=== PATIENT | male | born 1975 | race Caucasian/White ===

== ENCOUNTER 2017-02-01 14:22 | Emergency (ER) | payer OTHER ==
[~2017-02-01] VITALS: Ht 172.7 cm; Wt 97.5 kg
[2017-02-01 14:40] VITALS: BP 144/90
--- NOTE | 2017-02-01 15:25 | PHYS DOC ---
Past Medical History Past Medical History: No Pertinent History Past Surgical History: Cholecystectomy Additional Past Surgical Histo: vasectomy, left knee orthoscopic, deviated septum Alcohol Use: Occasionally Drug Use: None Adult General Chief Complaint Chief Complaint: LACERATION/AVULSION HPI HPI Patient is a 41 year old male presents to the emergency department stating that he was hit in the right side of his ear with a container at work. He does have lacerations noted on the outer part of the ear and a small superficial laceration noted on the cartilage in the ear. Bleeding is currently controlled. Patient is unsure when his last tetanus immunization occurred. Patient denies any loss of consciousness. Review of Systems Review of Systems Constitutional: Denies fever or chills [] Eyes: Denies change in visual acuity, redness, or eye pain [] HENT: Denies nasal congestion or sore throat [] Respiratory: Denies cough or shortness of breath [] Cardiovascular: No additional information not addressed in HPI [] GI: Denies abdominal pain, nausea, vomiting, bloody stools or diarrhea [] : Denies dysuria or hematuria [] Musculoskeletal: Denies back pain or joint pain [] Integument: Denies rash or skin lesions laceration noted to the right ear Neurologic: Denies headache, focal weakness or sensory changes [] Endocrine: Denies polyuria or polydipsia [] Current Medications Current Medications Current Medications Medications (Trade) Dose Ordered Sig/[place] Start Time Stop Time Status Last Admin Dose Admin Diphtheria/ Tetanus/Acell Pertussis (Boostrix) 0.5 ml ONCE ONCE 02/01/17 15:30 02/01/17 15:31 DC 02/01/17 15:27 0.5 ML Lidocaine/Sodium Bicarbonate (Buffered Lidocaine 1%) 20 ml 1X ONCE 02/01/17 15:30 02/01/17 15:31 DC 02/01/17 15:25 20 ML Allergies Allergies Allergies Coded Allergies Type Severity Reaction Last Updated Verified No Known Drug Allergies 02/01/17 No Physical Exam Physical Exam Constitutional: Well developed, well nourished, no acute distress, non-toxic appearance. [] HENT: Normocephalic, atraumatic, bilateral external ears normal, oropharynx moist, no oral exudates, nose normal. [] Eyes: PERRLA, EOMI, conjunctiva normal, no discharge. [] Neck: Normal range of motion, no tenderness, supple, no stridor. [] Cardiovascular: Patient pink warm and dry Lungs & Thorax: No respiratory distress noted Skin: Warm, dry, no erythema, no rash. Patient with a laceration noted to the right ear. 0.5 cm laceration noted to the outer part of the ear with a very superficial laceration approximately 0.5 cm in length on the inside cartridge of the ear. Bleeding is currently controlled. Back: No tenderness Extremities: No tenderness, no cyanosis, no clubbing, ROM intact, no edema. [] Neurologic: Alert and oriented X 3, normal motor function, normal sensory function, no focal deficits noted. [] Psychologic: Affect normal, judgement normal, mood normal. [] Current Patient Data Vital Signs Vital Signs Date Time Temp Pulse Resp B/P (MAP) Pulse Ox O2 Delivery O2 Flow Rate FiO2 02/01/17 14:40 98.7 95 18 98 Room Air 98.7 EKG EKG [] Radiology/Procedures Radiology/Procedures [] Course & Med Decision Making Course & Med Decision Making Pertinent Labs and Imaging studies reviewed. (See chart for details) Patient was provided with discharge instructions treatment regimens and follow- up recommendations recommended Tylenol or ibuprofen for pain and discomfort. Ice packs on 20 minutes off 20 minutes several times a day. Patient was encouraged to keep the area clean and dry. He was encouraged to watch for signs and symptoms of infection such as redness, warmth, tenderness or any yellow/ greenish drainage of a come from the site physician occur follow-up to primary care physician immediately. Patient agrees with discharge instructions, treatment regimens and follow-up recommendations. Recommended sutures out in 7- 10 days. Patient will be discharged home in stable condition. All questions were answered for the patient at his bedside. [] Dragon Disclaimer Dragon Disclaimer This electronic medical record was generated, in whole or in part, using a voice recognition dictation system. Departure Departure Impression: Primary Impression: Laceration of right ear Disposition: HOME, SELF-CARE Condition: STABLE Referrals: JUWAN GUAN MD (PCP) Patient Instructions: Laceration Care, Adult, [id number] Additional Instructions: Activity as tolerated. Keep the area clean and dry. Clean the site twice daily with soap and water and apply antibiotic to the area. Watch for signs and symptoms of infection: Redness, warmth, tenderness or any yellow/greenish drainage of a come from the site physician occur follow-up to primary care physician immediately. Otherwise follow-up in 7-10 days for suture removal. Return back to emergency prior signs symptoms of become worse. Tylenol or ibuprofen for pain and discomfort. Ice packs on 20 minutes off 20 minutes several times a day may also help with pain and discomfort. Laceration/Wound Repair Laceration/Wound Repair : Wound Location: head Wound's Depth, Shape: superficial Wound Length (cm): 0 Wound Explored: clean Irrigated w/ Saline (ccs): 100 Betadine Prep?: Yes Anesthesia: 1% Lidocaine Volume Anesthetic (ccs): 3 Wound Repaired With: sutures Suture Size/Type: 4:0 Number of Sutures: 4 Progress Right ear was injected with lidocaine 1% buffered with 3 mL injected into the area. 100 mL of normal saline was used to irrigate the area site was explored with no foreign bodies noted. Patient site was cleaned with Betadine, 4 interrupted sutures of 4-0 nylon was placed into the right ear. Patient tolerated procedure well. LEYLA HOFFMANN APRN Feb 01, 2017 15:25
[2017-02-01] MEDS ORDERED: LIDOCAINE 1% / SOD BICARB 8.4% 20 ML VIAL. IJ ONE (15:30)
[2017-02-01] MEDS ORDERED: DIPHTH,PERTUSS(ACELL),TET TOX 0.5 ML DISP.SYRIN. VAX IM ONE (15:30)
== END 2017-02-01 16:25 | disposition home or self-care (01) ==
LOC: ER 14:22
DX: S01.311A Laceration without foreign body of right ear, initial encounter (principal); Y28.8XXA Contact with other sharp object, undetermined intent, initial encounter; Y93.89 Activity, other specified; Y99.8 Other external cause status; Y92.69 Other specified industrial and construction area as the place of occurrence of the external cause
CPT/HCPCS: 12011; 90471; 90715; 99283-25